=== PATIENT | female | born 1980 | race Caucasian/White ===

== ENCOUNTER 2021-03-14 12:39 | Emergency (ER) | payer OTHER ==
[~2021-03-14] VITALS: Ht 165.1 cm; Wt 86.0 kg
[2021-03-14 13:54] LABS: BILIRUBIN,URINE NEGATIVE (NEG); CLARITY,URINE CLEAR; COLOR,URINE YELLOW; NITRITE,URINE NEGATIVE (NEG); PROTEIN,URINE 30 mg/dL (NEG-TRACE); UROBILINOGEN,URINE 0.2 mg/dL (0.2 mg/dL)
[2021-03-14 14:12] LABS: RBC,URINE TNTC /HPF (0-2)
[2021-03-14 14:13] LABS: BACTERIA,URINE FEW /HPF (0-FEW); WBC,URINE OCC /HPF (0-4)
[2021-03-14] MEDS ORDERED: KETOROLAC 30 MG/ML VIAL. IV ONE (14:15)
[2021-03-14] MEDS ORDERED: IV NORMAL SALINE 1000ML BAG 1,000 ML IV ONE (14:15)
[2021-03-14] MEDS ORDERED: ONDANSETRON PF 4 MG/2 ML VIAL. IV ONE (14:15)
[2021-03-14 14:27] LABS: BASO # 0.1 x10^3/uL (0.0-0.2); BASO % 1 % (0-3); EOS # 0.5 x10^3/uL (0.0-0.7); EOS % 4 % (0-3); HEMATOCRIT 39.7 % (36.0-47.0); HEMOGLOBIN 13.2 g/dL (12.0-15.5); LYMPH # 4.5 x10^3/uL (1.0-4.8); LYMPH % 38 % (24-48); MEAN CORPUSCULAR HEMOGLOBIN 32 pg (25-35); MEAN CORPUSCULAR HGB CONC 33 g/dL (31-37); MEAN CORPUSCULAR VOLUME 96 fL (79-100); MONO # 1.1 x10^3/uL (0.0-1.1); MONO % 9 % (0-9); NEUT # 5.6 x10^3/uL (1.8-7.7); NEUT % 48 % (31-73); PLATELET COUNT 407 x10^3/uL (140-400); RED BLOOD COUNT 4.13 x10^6/uL (3.50-5.40); RED CELL DISTRIBUTION WIDTH 15.1 % (11.5-14.5); WHITE BLOOD COUNT 11.7 x10^3/uL (4.0-11.0)
[2021-03-14 14:51] LABS: CALCIUM 8.9 mg/dL (8.5-10.1); CREATININE 0.7 mg/dL (0.6-1.0); GFR 92.7; POTASSIUM 3.8 mmol/L (3.5-5.1)
[2021-03-14 14:59] LABS: ALBUMIN 3.5 g/dL (3.4-5.0); MAGNESIUM 1.8 mg/dL (1.8-2.4); TOTAL BILIRUBIN 0.2 mg/dL (0.2-1.0); TOTAL PROTEIN 6.9 g/dL (6.4-8.2)
--- NOTE | 2021-03-14 15:49 | RAD ---
EXAMINATION: CT ABDOMEN+PELVIS WO (CT ABDOMEN/PELVIS WITHOUT IV CONTRAST) CLINICAL HISTORY: RIGHT FLANK PAIN, HEMATURIA TECHNIQUE: Non-IV contrast imaging of the abdomen and pelvis was performed using standard technique, scanning from just above the dome of the diaphragm to the symphysis pubis. Unenhanced imaging is pitts ited for the evaluation of some intra-abdominal and pelvic pathology. CT Dose Reduction Employed: One or more of the following individualized dose reduction techniques wer e utilized for this examination: 1. Automated exposure control 2. Adjustment of the mA and/or kV ac cording to patient size 3. Use of iterative reconstruction technique. COMPARISON: None FINDINGS: Small old calcified granulomas in the right middle lobe and lung base. Multiple small calcifications in the spleen, compatible with old granulomatous disease. Decompressed gallbladder. Liver, pancreas, and adrenal glands unremarkable. 6 mm calculus in the distal right ureter with mild hydroureter. No significant hydronephrosis. Tiny n onobstructive bilateral renal calculi. Minimally filled urinary bladder suboptimally evaluated. Uterus and adnexa unremarkable. No dilated bowel. Normal appendix. No abdominal aortic or iliac artery aneurysm. No lymphadenopathy. Lower lumbar facet arthropathy. IMPRESSION: 6 mm distal right ureteral calculus with mild hydroureter. Additional tiny nonobstructive bilateral r enal calculi. Electronically signed by: Bart De Oliveira DO (03/14/2021 3:46 PM) [facility]
[2021-03-14] MEDS ORDERED: MORPHINE SULFATE 4 MG/ML VIAL. IV ONE (16:15)
[2021-03-14 16:45] VITALS: BP 135/83
[2021-03-14] MEDS ORDERED: HYDR-2761 PO ×2 (16:58→17:43)
[2021-03-14] MEDS ORDERED: TAMS0.4C97 PO (16:58)
[2021-03-14] MEDS ORDERED: ONDA4TAB12 PO (16:58)
--- NOTE | 2021-03-14 17:03 | ED.ADGEN ---
Past Medical History Past Medical History: Other Additional Past Medical Histor: DDD Past Surgical History: No Surgical History Smoking Status: Current Every Day Smoker Alcohol Use: Occasionally Drug Use: None General Adult EDM: Chief Complaint: ABDOMINAL PAIN HPI: HPI: Patient is a 41 year old female, accompanied by her , who presents emergency department with complaints of right flank pain since yesterday. Patient states that the pain comes and goes. She reports increased urinary frequency in addition to the abdominal pain. Patient denies any nausea, vomiti ng, dysuria, hematuria, or difficulty voiding. She denies any fever, cough, sore throat, body aches, cough, congestion, or shortness of breath. Patient reports prior history of kidney stone, she states that this pain does not feel similar to that. She currently rates the pain a 8 out of 10 on the pain scale, she denies any alleviating factors, the pain is worse with palpation of the right lower quadrant. Review of Systems: Review of Systems: Complete ROS is negative unless otherwise noted in HPI. Current Medications: Current Medications Medications (Trade) Dose Ordered Sig/[facility] Start Time Stop Time Status Last Admin Dose Admin Ketorolac Tromethamine (Toradol 30mg Vial) 30 mg 1X ONCE 03/14/21 14:15 03/14/21 14:16 DC 03/14/21 14:22 30 MG Morphine Sulfate (Morphine Sulfate) 4 mg 1X ONCE 03/14/21 16:15 03/14/21 16:16 DC 03/14/21 16:33 4 MG Ondansetron HCl (Zofran) 4 mg 1X ONCE 03/14/21 14:15 03/14/21 14:16 DC 03/14/21 14:23 4 MG Sodium Chloride 1,000 ml @ 1,000 mls/hr 1X ONCE 03/14/21 14:15 03/14/21 15:14 DC 03/14/21 14:23 1,000 MLS/HR Allergies: Allergies: Allergies Coded Allergies Type Severity Reaction Last Updated Verified sulfamethoxazole Allergy Severe 03/14/21 Yes trimethoprim Allergy Severe 03/14/21 Yes Physical Exam: PE: See Above Constitutional: Well developed, well nourished, no acute distress, non-toxic appearance, appears uncomfortable. [] HENT: Normocephalic, atraumatic, bilateral external ears normal, nose normal. [] Eyes: PERRLA, EOMI, conjunctiva normal, no discharge. [] Neck: Normal range of motion, no stridor. [] Cardiovascular:Heart rate regular rhythm Lungs & Thorax: Respirations even and unlabored, no retractions, no respiratory distress Abdomen: soft, RLQ TTP, no rebound tenderness, no guarding, no palpable mass, no pulsatile mass, otherwise abdomen is soft and nontender, negative Rovsing's, negative psoas, positive McBurney's point tenderness Skin: Warm, dry, no erythema, no rash. [] Extremities: No cyanosis, ROM intact, no edema. [] Neurologic: Alert and oriented X 3, normal motor, normal sensory, no focal deficits noted. [] Psychologic: Affect normal, judgement normal, mood normal. [] Current Patient Data: Labs: Laboratory Tests Test 03/14/21 12:45 03/14/21 13:35 03/14/21 14:02 Urine Collection Type Unknown Urine Color Yellow Urine Clarity Clear Urine pH 6.0 (<5.0-8.0) Urine Specific Ada 1.025 (1.000-1.030) Urine Protein 30 mg/dL (NEG-TRACE) Urine Glucose (UA) Negative mg/dL (NEG) Urine Ketones (Stick) Negative mg/dL (NEG) Urine Blood Large (NEG) Urine Nitrite Negative (NEG) Urine Bilirubin Negative (NEG) Urine Urobilinogen Dipstick 0.2 mg/dL (0.2 mg/dL) Urine Leukocyte Esterase Trace (NEG) Urine RBC Tntc /HPF (0-2) Urine WBC Occ /HPF (0-4) Urine Squamous Epithelial Cells Mod /LPF Urine Bacteria Few /HPF (0-FEW) Urine Mucus Slight /LPF POC Urine HCG, Qualitative Hcg negative (Negative) White Blood Count 11.7 x10^3/uL (4.0-11.0) H Red Blood Count 4.13 x10^6/uL (3.50-5.40) Hemoglobin 13.2 g/dL (12.0-15.5) Hematocrit 39.7 % (36.0-47.0) Mean Corpuscular Volume 96 fL (79-100) Mean Corpuscular Hemoglobin 32 pg (25-35) Mean Corpuscular Hemoglobin Concent 33 g/dL (31-37) Red Cell Distribution Width 15.1 % (11.5-14.5) H Platelet Count 407 x10^3/uL (140-400) H Neutrophils (%) (Auto) 48 % (31-73) Lymphocytes (%) (Auto) 38 % (24-48) Monocytes (%) (Auto) 9 % (0-9) Eosinophils (%) (Auto) 4 % (0-3) H Basophils (%) (Auto) 1 % (0-3) Neutrophils # (Auto) 5.6 x10^3/uL (1.8-7.7) Lymphocytes # (Auto) 4.5 x10^3/uL (1.0-4.8) Monocytes # (Auto) 1.1 x10^3/uL (0.0-1.1) Eosinophils # (Auto) 0.5 x10^3/uL (0.0-0.7) Basophils # (Auto) 0.1 x10^3/uL (0.0-0.2) Sodium Level 143 mmol/L (136-145) Potassium Level 3.8 mmol/L (3.5-5.1) Chloride Level 106 mmol/L (98-107) Carbon Dioxide Level 28 mmol/L (21-32) Anion Gap 9 (6-14) Blood Urea Nitrogen 12 mg/dL (7-20) Creatinine 0.7 mg/dL (0.6-1.0) Estimated GFR (Cockcroft-Gault) 92.7 BUN/Creatinine Ratio 17 (6-20) Glucose Level 89 mg/dL (70-99) Calcium Level 8.9 mg/dL (8.5-10.1) Magnesium Level 1.8 mg/dL (1.8-2.4) Total Bilirubin 0.2 mg/dL (0.2-1.0) Aspartate Amino Transferase (AST) 15 U/L (15-37) Alanine Aminotransferase (ALT) 19 U/L (14-59) Alkaline Phosphatase 89 U/L (46-116) Total Protein 6.9 g/dL (6.4-8.2) Albumin 3.5 g/dL (3.4-5.0) Albumin/Globulin Ratio 1.0 (1.0-1.7) Lipase 221 U/L (73-393) Laboratory Tests 03/14/21 14:02 Laboratory Tests 03/14/21 14:02 Vital Signs: Vital Signs Date Time Temp Pulse Resp B/P (MAP) Pulse Ox O2 Delivery O2 Flow Rate FiO2 03/14/21 16:45 135/83 (100) 92 Room Air 03/14/21 16:33 18 03/14/21 15:15 89 03/14/21 14:36 98.0 98.0 EKG: EKG: [] Heart Score: C/O Chest Pain: No Risk Scores: Score 0 - 3: 2.5% MACE over next 6 weeks - Discharge Home Score 4 - 6: 20.3% MACE over next 6 weeks - Admit for Clinical Observation Score 7 - 10: 72.7% MACE over next 6 weeks - Early Invasive Strategies Radiology/Procedures: Radiology/Procedures: PROCEDURE: CT ABDOMEN PELVIS WO CONTRAST EXAMINATION: CT ABDOMEN+PELVIS WO (CT ABDOMEN/PELVIS WITHOUT IV CONTRAST) CLINICAL HISTORY: RIGHT FLANK PAIN, HEMATURIA TECHNIQUE: Non-IV contrast imaging of the abdomen and pelvis was performed using standard technique, scanning from just above the dome of the diaphragm to the symphysis pubis. Unenhanced imaging is limited for the evaluation of some intra-abdominal and pelvic pathology. CT Dose Reduction Employed: One or more of the following individualized dose reduction techniques were utilized for this examination: 1. Automated exposure control 2. Adjustment of the mA and/or kV according to patient size 3. Use of iterative reconstruction technique. COMPARISON: None FINDINGS: Small old calcified granulomas in the right middle lobe and lung base. Multiple small calcifications in the spleen, compatible with old granulomatous disease. Decompressed gallbladder. Liver, pancreas, and adrenal glands unremarkable. 6 mm calculus in the distal right ureter with mild hydroureter. No significant hydronephrosis. Tiny nonobstructive bilateral renal calculi. Minimally filled urinary bladder suboptimally evaluated. Uterus and adnexa unremarkable. No dilated bowel. Normal appendix. No abdominal aortic or iliac artery aneurysm. No lymphadenopathy. Lower lumbar facet arthropathy. IMPRESSION: 6 mm distal right ureteral calculus with mild hydroureter. Additional tiny nonobstructive bilateral renal calculi. Electronically signed by: Bart De Oliveira DO (03/14/2021 3:46 PM) [facility] [] Course & Med Decision Making: Course & Med Decision Making Pertinent Labs and Imaging studies reviewed. (See chart for details) 41-year-old female presents emergency department with complaints of right flank pain. CT abdomen pelvis revealed a 6 mm calculus in the distal right ureter, no hydronephrosis. CBC revealed a mildly elevated white blood cell count of 11.7, CMP is unremarkable, UA reveals too many to count red blood cells with occasional white blood cells, no nitrites, urine hCG is negative. I discussed the CT report with the patient, I offered to transfer her to a facility with urology, patient declined transfer. Will prescribe hydrocodone, Flomax, and Zofran to take as needed. Patient encouraged to increase clear fluids, instructed her to follow-up with her primary care doctor or urologist next week, patient was provided with a urine strainer and a hat for urine collection she was instructed to strain her urine for stone collection that way she can take it for embolization. I encouraged patient to return to the ER if symptoms worsen or fever develop. Patient verbalized an understanding of home care, medications, follow-up, and return to ED instructions and was in agreement with the plan of care. [] Wendy Disclaimer: Wendy Disclaimer: This electronic medical record was generated, in whole or in part, using a voice recognition dictation system. Departure Departure Impression: Primary Impression: Kidney stone on right side Disposition: 01 HOME / SELF CARE / HOMELESS Condition: STABLE Referrals: NON,STAFF (PCP) Patient Instructions: Diet for Kidney Stones, Kidney Stones, [id number] Additional Instructions: Fill the prescriptions use them as directed. Increase clear fluids. Use the strainer provided to strain all of your urine, if you collect the stone take it with you to your urologist appointment. I recommend that you follow-up with a urologist or your primary care doctor next week, return to the ER if your symptoms worsen, fever develops, or you have difficulty urinating. Scripts Hydrocodone Bit/Acetaminophen (HYDROCODONE-APAP 5-325 ) 1 Tab Tablet 1 TAB PO PRN Q6HRS PRN for PAIN for 5 Days, #20 TAB 0 Refills Prov: ANA KING [employer] 03/14/21 Ondansetron (ONDANSETRON ODT) 4 Mg Tab.rapdis 1 TAB PO PRN Q6-8HRS PRN for NAUSEA/VOMITING for 4 Days, #16 TAB 0 Refills Prov: ANA KING [employer] 03/14/21 Tamsulosin Hcl (FLOMAX) 0.4 Mg Cap.er.24h 1 CAP PO DAILY for 28 Days, #28 CAP 0 Refills Prov: ANA KING APRN 03/14/21 ANA KING APRN March 14, 2021 17:03
== END 2021-03-14 17:50 | disposition home or self-care (01) ==
LOC: ER 12:39
DX: N20.2 Calculus of kidney with calculus of ureter (principal); F17.200 Nicotine dependence, unspecified, uncomplicated; Z88.1 Allergy status to other antibiotic agents; Z88.2 Allergy status to sulfonamides
CPT/HCPCS: 36415; 74176; 80053; 81001; 81025; 83690; 83735; 85025; 87086; 96361; 96374; 96375; 99285; J1885; J2270; J2405; J7030